=== PATIENT | male | born 1960 | race Caucasian/White ===

== ENCOUNTER 2022-10-30 15:07 | Emergency (ER) | payer SELFPAY ==
[~2022-10-30] VITALS: Ht 165.1 cm; Wt 64.4 kg
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
[2022-10-30 15:21] VITALS: BP_SYST 142; PULSE 72; RESP 16; TEMP 98; O2SAT 99
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
--- NOTE | 2022-10-30 15:47 | NUR ---
Patient given written and verbal discharge instructions and verbalizes understanding. ER MD discussed with patient the results and treatment provided. Patient in stable condition. ID arm band removed. No Rx given. Patient educated on pain management and to follow up with PMD. Pain Scale 2/10. Opportunity for questions provided and answered. Medication side effect fact sheet provided.
[2022-10-30 15:48] VITALS: BP_SYST 142; PULSE 72; RESP 16; TEMP 98; O2SAT 99
== END 2022-10-30 15:47 | disposition home or self-care (01) ==
LOC: SED 15:07
DX: G51.0 Bell's palsy (principal); R20.2 Paresthesia of skin; F10.20 Alcohol dependence, uncomplicated; Z79.899 Other long term (current) drug therapy; Y90.6 Blood alcohol level of 120-199 mg/100 ml
CPT/HCPCS: 99283